=== PATIENT | female | born 1930 | race Caucasian/White ===

== ENCOUNTER 2019-03-15 09:03 | Emergency (ER) | payer MEDICARE ==
[2019-03-15 09:50] VITALS: BP 170/87
--- NOTE | 2019-03-15 10:38 | UC ---
Upper Extremity HPI - HPI Summary HPI Summary: Pt presents with c/o sudden onset of left wrist pain that began this morning when she woke. Pt denies HX of gout, recent injury or recent overuse of wrist. Pt is right handed. - History of Current Complaint Chief Complaint: UCUpperExtremity Stated Complaint: LEFT WRIST CONCERN Time Seen by Provider: 03/15/19 10:20 Hx Obtained From: Patient Hx Last Menstrual Period: n/a ?: No Onset/Duration: Sudden Onset, Still Present Severity Initially: Moderate Severity Currently: Mild Pain Intensity: 5 Location Of Pain: Is Discrete @ - left wrist Character: Dull, Aching, Stiffness Aggravating Factor(s): Movement Alleviating Factor(s): Compression - Pt wrsppe din JOHN at home and states it "made it feel slightly better". Associated Signs And Symptoms: Positive: Swelling - mild Related History: Dominant Hand Right - Risk Factors Non-Orthopedic Risk Factor: Negative DVT Risk Factors: Negative Septic Arthritis Risk Factor: Extremes of Age Compartment Syndrome Risk Factors: Pain - Allergies/Home Medications Allergies/Adverse Reactions: Allergies Allergy/AdvReac Type Severity Reaction Status Date / Time No Known Allergies Allergy Verified 03/15/19 09:35 Home Medications: Home Medications Cholecalciferol (Vitamin D3) [Vitamin D3] 1,000 unit PO DAILY 03/15/19 [History Confirmed 03/15/19] Levothyroxine TAB* [Synthroid TAB*] 75 mcg PO DAILY 03/15/19 [History Confirmed 03/15/19] Prevagen 1 tab PO DAILY 03/15/19 [History] PMH/Surg Hx/FS Hx/Imm Hx Previously Healthy: Yes Cardiovascular History: Cardiac Disease, Hypertension - Surgical History Surgical History: Yes Surgery Procedure, Year, and Place: thyroidectomy - Family History Known Family History: Positive: Cardiac Disease - Social History Occupation: Retired Lives: Alone Alcohol Use: None Substance Use Type: None Smoking Status (MU): Never Smoked Tobacco Have You Smoked in the Last Year: No - Immunization History Vaccination Up to Date: Yes Review of Systems All Other Systems Reviewed And Are Negative: Yes Constitutional: Positive: Negative Skin: Positive: Other - left wrist slightly warmer in temperature anterior aspect Eyes: Positive: Negative ENT: Positive: Negative Respiratory: Positive: Negative Cardiovascular: Positive: Negative Gastrointestinal: Positive: Negative Genitourinary: Positive: Negative Motor: Positive: Other - pain with ROM left wrist Neurovascular: Positive: Negative Musculoskeletal: Positive: Arthralgia, Edema - slight edema to left wrist, Neurological: Positive: Negative Psychological: Positive: Negative Is Patient Immunocompromised?: No Physical Exam Triage Information Reviewed: Yes Appearance: Well-Appearing Vital Signs: Initial Vital Signs Temp 97.9 F 03/15/19 09:41 Pulse 64 03/15/19 09:41 Resp 18 03/15/19 09:41 BP 170/87 03/15/19 09:41 Pulse Ox 100 03/15/19 09:41 Vital Signs Reviewed: Yes Eye Exam: Normal ENT: Positive: Hearing grossly normal Dental Exam: Normal Neck exam: Normal Respiratory: Positive: No respiratory distress Musculoskeletal Exam: Normal Musculoskeletal: Positive: Strength Intact, Edema @ - slight generalized edema left wrist skin temp of anterior aspect slightly warmer thatn posterior, possibly slight erythema to wrist but not obvious. I discussed possible gout Upper Extremity Course/Dx - Course Course Of Treatment: WE discussed the possibility of gout and S/sx of gout and pt verbalized understanding and agreed to plan of care. - Differential Dx/Diagnosis Differential Diagnosis/HQI/PQRI: Bursitis, Septic Arthritis, Sprain Provider Diagnosis: Wrist pain, left Discharge ED - Sign-Out/Discharge Documenting (check all that apply): Patient Departure All imaging exams completed and their final reports reviewed: No Studies - Discharge Plan Condition: Stable Disposition: HOME Patient Education Materials: Low Purine Diet (ED), Arthralgia (ED) Referrals: Dylan Engel MD [Primary Care Provider] - If Needed Additional Instructions: Please follow up with your PCP as needed. If your symptoms do not improve or worsen please seek medical care as soon as possible. - Billing Disposition and Condition Condition: STABLE Disposition: Home
== END 2019-03-15 10:45 | disposition home or self-care (01) ==
LOC: UCCORT 09:03
DX: I10 Essential (primary) hypertension (principal)
CPT/HCPCS: 99211; G0463

== ENCOUNTER 2021-06-08 15:19 | Inpatient (IN) ==
[2021-06-08 16:57] LABS: ABS Lymphocytes 0.2 10^3/ul (1.0-4.8); ABS Monocytes 0.3 10^3/ul (0-0.8); ABS Neutrophils 7.1 10^3/ul (1.5-7.7); Hematocrit 44 % (35-47); Hemoglobin 15.8 g/dL (12.0-16.0); Lymphocyte % 2.1 %; Mean Corpuscular HGB Conc 36 g/dL (31-36); Mean Corpuscular Hemoglobin 34 pg (27-31); Mean Corpuscular Volume 96 fL (80-97); Platelet Count 165 10^3/uL (150-450); Red Blood Count 4.64 10^6 /uL (3.70-4.87); Red Cell Distribution Width 13 % (10-15); White Blood Count 7.6 10^3/uL (3.5-10.8)
[2021-06-08 17:20] LABS: Troponin I 0.09 ng/mL (<0.03)
[2021-06-08 17:23] LABS: ALT 37 U/L (7-52); AST 100 U/L (13-39); Albumin 4.1 g/dL (3.2-5.2); Alkaline Phosphatase 53 U/L (35-149); Anion Gap 10 mmol/L (2-11); Blood Urea Nitrogen 26 mg/dL (6-24); CO2 Carbon Dioxide 34 mmol/L (22-32); Calcium 9.1 mg/dL (8.6-10.3); Chloride 78 mmol/L (101-111); Globulin 4.2 g/dL (2-4); Glucose 123 mg/dL (70-100); Potassium 3.2 mmol/L (3.5-5.0); Sodium 122 mmol/L (135-145); Total Protein 8.3 g/dL (6.4-8.9); eGFR CKD-EPI 51.7 (>60)
[2021-06-08 17:37] LABS: INR 4.5 (0.86-1.15)
[2021-06-08 17:38] LABS: Creatine Kinase 3873 U/L (10-223)
[2021-06-08 17:42] LABS: Urine Appearance Cloudy; Urine Bilirubin Negative (Negative); Urine Blood 3+ (Negative); Urine Color Yellow; Urine Glucose 2+(150 mg/dL) (Negative); Urine Ketones Negative (Negative); Urine Nitrite Negative (Negative); Urine Protein 3+(>=500 mg/dL) (Negative); Urine Specific Gravity 1.016 (1.002-1.030); Urine Urobilinogen Negative (Negative)
[2021-06-08 17:48] LABS: Urine Bacteria 1+ (Absent); Urine Granular Casts Present (Absent); Urine Red Blood Cell 1+(3-5/hpf) (Absent); Urine White Blood Cell 2+(11-20/hpf) (Absent)
[2021-06-08] MEDS ORDERED: NS 0.9% 1000 ml BAG 1,000 ML IV ONE (18:12)
[2021-06-08] MEDS ORDERED: hydrALAZINE 20 mg/ml 1 ML Vial IV IV SLOW PU PRN (20:33)
[2021-06-08 20:46] LABS: Anion Gap 9 mmol/L (2-11); Blood Urea Nitrogen 26 mg/dL (6-24); CO2 Carbon Dioxide 33 mmol/L (22-32); Calcium 8.2 mg/dL (8.6-10.3); Chloride 83 mmol/L (101-111); Glucose 113 mg/dL (70-100); Potassium 3.1 mmol/L (3.5-5.0); Sodium 125 mmol/L (135-145); eGFR CKD-EPI 53.5 (>60)
[2021-06-08 20:58] LABS: Troponin I 0.07 ng/mL (<0.03)
[2021-06-08] MEDS ORDERED: cefTRIAXone 1 gm/50 mL NS BAG 1 GM/50 ML BAG IVPB SCH (21:00)
[2021-06-08] MEDS ORDERED: Azithromycin 500 mg/250 ml NS 500 MG/250 ML BAG IVPB SCH (21:00)
[2021-06-08] MEDS ORDERED: NS 0.9% 1000 ml BAG 1,000 ML IV SCH (21:00)
[2021-06-08] MEDS ORDERED: Metoprolol Tartrate 5 mg VIAL 5 ml VIAL (1 mg/ml) IV SCH ×2 (21:00→22:22)
[2021-06-08 21:29] LABS: Rapid COVID-19 Molecular Detected (Undetected)
[2021-06-08 21:40] LABS: C Reactive Protein 106.73 mg/L (<8.01); Magnesium 1.7 mg/dL (1.9-2.7)
[2021-06-08] MEDS ORDERED: Magnesium Sulfate IV 3 GM in NS 0.9% 100 ml BAG 100 ML IVPB ONE (22:02)
[2021-06-08] MEDS ORDERED: NS 0.9% 100 ml BAG 100 ML ONE (22:05)
[2021-06-08 22:40] LABS: TSH Ultra Thyroid Stim Horm 0.88 mcIU/mL (0.34-5.60)
[2021-06-08 22:51] LABS: Folate > 20.00 ng/mL (5.90-24.80)
[2021-06-08 22:52] LABS: Vitamin B12 > 1450 pg/mL (180-914)
[2021-06-08 22:57] LABS: Osmolality Serum 264 mOsm/kg (275-295); Urine Osmo 498 mOsm/kg (150-1150)
[2021-06-08] MEDS: KCL 20 MEQ/100 ML IVPREMIX 20 MEQ/100 ML BAG IV SCH (23:21)
[2021-06-09] MEDS ORDERED: Metoprolol Tartrate 5 mg VIAL 5 ml VIAL (1 mg/ml) IV ONE ×2 (00:46→00:59)
[2021-06-09] MEDS ORDERED: hydrALAZINE 20 mg/ml 1 ML Vial IV IV SLOW PU PRN (00:46)
[2021-06-09] MEDS ORDERED: Metoprolol Tartrate 5 mg VIAL 5 ml VIAL (1 mg/ml) IV SCH ×2 (00:46→05:15)
[2021-06-09] MEDS: Azithromycin 500 mg/250 ml NS 500 MG/250 ML BAG IVPB SCH ×2 (04:08→22:36)
[2021-06-09] MEDS ORDERED: Levothyroxine 100 MCG/5 ML VIAL IV SCH (06:00)
[2021-06-09] MEDS: Levothyroxine 100 MCG/5 ML VIAL IV SCH (06:15)
[2021-06-09] MEDS ORDERED: KCL 20 MEQ/100 ML IVPREMIX 20 MEQ/100 ML BAG IV ONE (06:30)
[2021-06-09] MEDS: KCL 20 MEQ/100 ML IVPREMIX 20 MEQ/100 ML BAG IV SCH ×5 (06:33→21:34)
[2021-06-09 07:37] LABS: ABS Lymphocytes 0.2 10^3/ul (1.0-4.8); ABS Monocytes 0.3 10^3/ul (0-0.8); ABS Neutrophils 8.6 10^3/ul (1.5-7.7); Eosinophil % 0.1 %; Hematocrit 40 % (35-47); Hemoglobin 13.7 g/dL (12.0-16.0); Lymphocyte % 1.7 %; Mean Corpuscular HGB Conc 35 g/dL (31-36); Mean Corpuscular Hemoglobin 33 pg (27-31); Mean Corpuscular Volume 96 fL (80-97); Mean Platelet Volume 9.2 fL (7.4-10.4); Platelet Count 161 10^3/uL (150-450); Red Blood Count 4.14 10^6 /uL (3.70-4.87); Red Cell Distribution Width 13 % (10-15); White Blood Count 9.1 10^3/uL (3.5-10.8)
[2021-06-09 07:45] LABS: INR 4.64 (0.86-1.15)
[2021-06-09 07:49] LABS: Albumin 3.5 g/dL (3.2-5.2); Calcium 8.1 mg/dL (8.6-10.3); Globulin 3.6 g/dL (2-4); Magnesium 2.9 mg/dL (1.9-2.7); Potassium 2.8 mmol/L (3.5-5.0); Total Bilirubin 0.8 mg/dL (0.2-1.0); Total Protein 7.1 g/dL (6.4-8.9); eGFR CKD-EPI 65.9 (>60)
[2021-06-09] MEDS ORDERED: Lactated Ringers 1000 ml BAG 1,000 ML IV ONE ×2 (09:01→17:55)
[2021-06-09] MEDS ORDERED: Potassium Chloride LIQUID 20 MEQ/15 ML LIQUID PO SCH (09:15)
[2021-06-09 15:52] LABS: Calcium 7.5 mg/dL (8.6-10.3); Potassium 3.3 mmol/L (3.5-5.0); eGFR CKD-EPI 83.1 (>60)
[2021-06-09] MEDS ORDERED: Digoxin IV 0.5 MG/2 ML AMP (0.25 MG/ML) IV SLOW PU SCH (17:00)
[2021-06-09] MEDS ORDERED: Warfarin - No Order Today **NOTE FOLLOW UP ONE (17:00)
[2021-06-09] MEDS ORDERED: Warfarin per PHARMACY **NOTE FOLLOW UP SCH (17:00)
[2021-06-09] MEDS: Metoprolol Tartrate 5 mg VIAL 5 ml VIAL (1 mg/ml) IV SCH (21:50)
[2021-06-09] MEDS ORDERED: cefTRIAXone 1 gm/50 mL NS BAG 1 GM/50 ML BAG IVPB SCH (22:00)
[2021-06-10] MEDS: Metoprolol Tartrate 5 mg VIAL 5 ml VIAL (1 mg/ml) IV SCH ×2 (03:28→10:04)
[2021-06-10 05:34] LABS: Hematocrit 41 % (35-47); Hemoglobin 14.2 g/dL (12.0-16.0); Mean Platelet Volume 9.1 fL (7.4-10.4); Platelet Count 147 10^3/uL (150-450)
[2021-06-10 05:35] LABS: INR 4.44 (0.86-1.15)
[2021-06-10] MEDS: Levothyroxine 100 MCG/5 ML VIAL IV SCH (05:37)
[2021-06-10 07:38] LABS: Albumin 3.4 g/dL (3.2-5.2); Albumin/Globulin Ratio 0.9 (1-3); Calcium 7.9 mg/dL (8.6-10.3); Globulin 3.6 g/dL (2-4); Potassium 3.7 mmol/L (3.5-5.0); Total Bilirubin 0.6 mg/dL (0.2-1.0)
[2021-06-10] MEDS ORDERED: CALCIUM GLUCONATE 1GM/50ML NS 1 GM/50 ML BAG IV ONE (08:30)
[2021-06-10] MEDS ORDERED: Warfarin - No Order Today **NOTE FOLLOW UP ONE (17:00)
[2021-06-11 05:00] LABS: Hematocrit 41 % (35-47); Hemoglobin 14.2 g/dL (12.0-16.0); Mean Platelet Volume 8.5 fL (7.4-10.4); Platelet Count 146 10^3/uL (150-450)
[2021-06-11 05:07] LABS: INR 3.77 (0.86-1.15)
[2021-06-11 05:21] LABS: Albumin 3.2 g/dL (3.2-5.2); Albumin/Globulin Ratio 0.9 (1-3); Calcium 7.9 mg/dL (8.6-10.3); Globulin 3.6 g/dL (2-4); Potassium 2.9 mmol/L (3.5-5.0); Total Bilirubin 0.7 mg/dL (0.2-1.0); Total Protein 6.8 g/dL (6.4-8.9); eGFR CKD-EPI 74.1 (>60)
[2021-06-11] MEDS: Levothyroxine 100 MCG/5 ML VIAL IV SCH (06:40)
[2021-06-11] MEDS ORDERED: KCL 20 MEQ/100 ML IVPREMIX 20 MEQ/100 ML BAG IV ONE (07:00)
[2021-06-11] MEDS ORDERED: Magnesium Sulfate IV 1GM/100ML 1 GM/100 ML BAG IV ONE (07:01)
[2021-06-11] MEDS ORDERED: Calcium Gluconate 4 GM in NS 0.9% 250 ml 250 ML IVPB ONE (07:05)
[2021-06-11 07:27] LABS: Magnesium 1.6 mg/dL (1.9-2.7)
[2021-06-11] MEDS: Polyethylene Glycol 3350 17 GM PACKET PO SCH (09:43)
[2021-06-11 10:41] LABS: Phosphorus 2.1 mg/dL (2.5-5.0)
[2021-06-11] MEDS ORDERED: Magnesium Sulfate IV 3 GM in NS 0.9% 100 ml BAG 100 ML IVPB ONE (13:35)
[2021-06-11] MEDS: Potassium Chlor 20 meq TAB.ER PO SCH ×2 (14:25→17:46)
[2021-06-11] MEDS: Potassium Chloride LIQUID 20 MEQ/15 ML LIQUID PO SCH (15:33)
[2021-06-11] MEDS: Warfarin DAILY REMINDER **NOTE FOLLOW UP SCH (15:45)
[2021-06-11] MEDS ORDERED: Warfarin - No Order Today **NOTE FOLLOW UP ONE (17:00)
[2021-06-11] MEDS ORDERED: Potassium Phosphate IV 10 MMOLE in NS 0.9% 250 ml 250 ML IVPB ONE (18:30)
[2021-06-11 18:37] LABS: Calcium 8.3 mg/dL (8.6-10.3); Magnesium 3.1 mg/dL (1.9-2.7); Potassium 3.4 mmol/L (3.5-5.0)
[2021-06-11 18:42] LABS: eGFR CKD-EPI 75.3 (>60)
[2021-06-11] MEDS: Senna TAB 8.6 mg TAB PO SCH (19:55)
[2021-06-12 05:27] LABS: INR 2.91 (0.86-1.15)
[2021-06-12 05:32] LABS: Hematocrit 42 % (35-47); Hemoglobin 14.3 g/dL (12.0-16.0); Mean Platelet Volume 8.8 fL (7.4-10.4); Platelet Count 147 10^3/uL (150-450)
[2021-06-12 05:46] LABS: Calcium 8.6 mg/dL (8.6-10.3); Magnesium 2.1 mg/dL (1.9-2.7); Potassium 4.6 mmol/L (3.5-5.0)
[2021-06-12 05:51] LABS: eGFR CKD-EPI 66.8 (>60)
[2021-06-12] MEDS: Polyethylene Glycol 3350 17 GM PACKET PO SCH ×2 (09:08→09:24)
[2021-06-12 13:14] LABS: Phosphorus 3.4 mg/dL (2.5-5.0)
[2021-06-12] MEDS: Warfarin DAILY REMINDER **NOTE FOLLOW UP SCH (18:18)
[2021-06-12] MEDS ORDERED: Remdesivir 100 mg Vial 200 MG in NS 0.9% 250 ml 210 ML IV ONE (19:30)
[2021-06-12 19:40] LABS: INR 2.38 (0.86-1.15)
[2021-06-12 19:56] LABS: Albumin 2.9 g/dL (3.2-5.2); Albumin/Globulin Ratio 0.9 (1-3); Calcium 8.5 mg/dL (8.6-10.3); Globulin 3.4 g/dL (2-4); Total Bilirubin 0.7 mg/dL (0.2-1.0); Total Protein 6.3 g/dL (6.4-8.9); eGFR CKD-EPI 74.1 (>60)
[2021-06-12] MEDS ORDERED: metroNIDAZOLE IV 500 MG/100ML 500 MG/100 ML BAG IVPB SCH (22:00)
[2021-06-12] MEDS: Senna TAB 8.6 mg TAB PO SCH (23:02)
[2021-06-13] MEDS: cefTRIAXone 1 gm/50 mL NS BAG 1 GM/50 ML BAG IVPB SCH ×2 (00:38→23:00)
[2021-06-13 09:47] LABS: Albumin 3.4 g/dL (3.2-5.2); Albumin/Globulin Ratio 0.9 (1-3); Calcium 8.5 mg/dL (8.6-10.3); Magnesium 1.6 mg/dL (1.9-2.7); Phosphorus 3.7 mg/dL (2.5-5.0); Potassium 3.8 mmol/L (3.5-5.0); Total Bilirubin 0.7 mg/dL (0.2-1.0); Total Protein 7.4 g/dL (6.4-8.9); eGFR CKD-EPI 71.9 (>60)
[2021-06-13 09:52] LABS: INR 1.86 (0.86-1.15)
[2021-06-13] MEDS: metroNIDAZOLE IV 500 MG/100ML 500 MG/100 ML BAG IVPB SCH (10:10)
[2021-06-13] MEDS: Polyethylene Glycol 3350 17 GM PACKET PO SCH ×2 (10:15→10:30)
[2021-06-13] MEDS ORDERED: Magnesium Sulfate 2 gm BAG 2 GM/50 ML BAG IVPB ONE (16:51)
[2021-06-13] MEDS ORDERED: KCL 20 MEQ/100 ML IVPREMIX 20 MEQ/100 ML BAG IV ONE (16:52)
[2021-06-13] MEDS: Warfarin DAILY REMINDER **NOTE FOLLOW UP SCH (19:00)
[2021-06-13] MEDS: Senna TAB 8.6 mg TAB PO SCH (21:59)
[2021-06-14] MEDS: metroNIDAZOLE IV 500 MG/100ML 500 MG/100 ML BAG IVPB SCH ×4 (02:02→16:26)
[2021-06-14 06:11] LABS: ABS Lymphocytes 0.2 10^3/ul (1.0-4.8); ABS Monocytes 0.3 10^3/ul (0-0.8); ABS Neutrophils 6.9 10^3/ul (1.5-7.7); Hematocrit 40 % (35-47); Hemoglobin 13.6 g/dL (12.0-16.0); Lymphocyte % 2.2 %; Mean Corpuscular HGB Conc 34 g/dL (31-36); Mean Corpuscular Hemoglobin 33 pg (27-31); Mean Corpuscular Volume 97 fL (80-97); Mean Platelet Volume 8.4 fL (7.4-10.4); Platelet Count 213 10^3/uL (150-450); Red Blood Count 4.14 10^6 /uL (3.70-4.87); Red Cell Distribution Width 14 % (10-15); White Blood Count 7.4 10^3/uL (3.5-10.8)
[2021-06-14 06:18] LABS: INR 2.18 (0.86-1.15)
[2021-06-14 06:25] LABS: Calcium 8.5 mg/dL (8.6-10.3); Magnesium 2.1 mg/dL (1.9-2.7); Phosphorus 3.5 mg/dL (2.5-5.0)
[2021-06-14] MEDS ORDERED: Calcium Gluconate 2 GM in NS 0.9% 100 ml BAG 100 ML IV ONE (07:21)
[2021-06-14] MEDS: Polyethylene Glycol 3350 17 GM PACKET PO SCH (10:21)
[2021-06-14] MEDS: Warfarin DAILY REMINDER **NOTE FOLLOW UP SCH (16:24)
[2021-06-14] MEDS: Remdesivir 100 mg Vial 100 MG in NS 0.9% 250 ml 230 ML IV SCH ×2 (21:32)
[2021-06-14] MEDS: Senna TAB 8.6 mg TAB PO SCH (21:34)
[2021-06-15] MEDS: cefTRIAXone 1 gm/50 mL NS BAG 1 GM/50 ML BAG IVPB SCH (01:47)
[2021-06-15] MEDS: Remdesivir 100 mg Vial 100 MG in NS 0.9% 250 ml 230 ML IV SCH ×2 (01:48→23:54)
[2021-06-15] MEDS: metroNIDAZOLE IV 500 MG/100ML 500 MG/100 ML BAG IVPB SCH (01:49)
[2021-06-15 06:48] LABS: INR 3.11 (0.86-1.15)
[2021-06-15 06:49] LABS: Magnesium 1.6 mg/dL (1.9-2.7); Phosphorus 3.4 mg/dL (2.5-5.0); Potassium 3.2 mmol/L (3.5-5.0); eGFR CKD-EPI 79.1 (>60)
[2021-06-15] MEDS ORDERED: Calcium Gluconate 4 GM in NS 0.9% 250 ml 250 ML IVPB ONE (07:11)
[2021-06-15 08:05] LABS: Calcium (PTH Intact) 8.8 mg/dL (8.6-10.3)
[2021-06-15] MEDS: Polyethylene Glycol 3350 17 GM PACKET PO SCH ×2 (09:35→09:54)
[2021-06-15] MEDS: Warfarin DAILY REMINDER **NOTE FOLLOW UP SCH (17:23)
[2021-06-15] MEDS ORDERED: KCL 20 MEQ/100 ML IVPREMIX 20 MEQ/100 ML BAG IV ONE (17:48)
[2021-06-15] MEDS ORDERED: Magnesium Sulfate 2 gm BAG 2 GM/50 ML BAG IVPB ONE (17:49)
[2021-06-15] MEDS: Senna TAB 8.6 mg TAB PO SCH (22:44)
[2021-06-16] MEDS: Potassium Chlor 20 meq TAB.ER PO SCH ×2 (00:16→02:23)
[2021-06-16 01:13] LABS: Hematocrit 43 % (35-47); Hemoglobin 14.6 g/dL (12.0-16.0); Mean Corpuscular HGB Conc 34 g/dL (31-36); Mean Corpuscular Hemoglobin 33 pg (27-31); Mean Corpuscular Volume 97 fL (80-97); Mean Platelet Volume 8.4 fL (7.4-10.4); Platelet Count 260 10^3/uL (150-450); Red Blood Count 4.43 10^6 /uL (3.70-4.87); Red Cell Distribution Width 14 % (10-15); White Blood Count 11.7 10^3/uL (3.5-10.8)
[2021-06-16 01:15] LABS: Albumin 3.1 g/dL (3.2-5.2); Albumin/Globulin Ratio 0.8 (1-3); Calcium 9.1 mg/dL (8.6-10.3); Globulin 3.8 g/dL (2-4); Magnesium 1.7 mg/dL (1.9-2.7); Phosphorus 3.7 mg/dL (2.5-5.0); Potassium 3.7 mmol/L (3.5-5.0); Total Bilirubin 0.8 mg/dL (0.2-1.0); Total Protein 6.9 g/dL (6.4-8.9); eGFR CKD-EPI 64.9 (>60)
[2021-06-16] MEDS ORDERED: Amoxicillin/Clavul 875/125 TAB (Augmentin 875 tab) PO SCH ×2 (01:19→21:00)
[2021-06-16 01:27] LABS: PCO2 Arterial 39 mmHg (35-45); PO2 Arterial 65 mmHg (80-100)
[2021-06-16 01:33] LABS: ABS Basophils 0.1 10^3/ul (0-0.2); ABS Lymphocytes 0.2 10^3/ul (1.0-4.8); ABS Monocytes 0.5 10^3/ul (0-0.8); ABS Neutrophils 10.9 10^3/ul (1.5-7.7); Lymphocyte % 1.6 %
[2021-06-16 01:46] LABS: Troponin I 0.04 ng/mL (<0.03)
[2021-06-16] MEDS ORDERED: Morphine 2 MG/ML SYRINGE IV ONE (02:44)
[2021-06-16] MEDS ORDERED: Morphine ORAL CONCENTRATE 5 MG/0.25 ML ORAL.SYRIN SL ONE (05:51)
[2021-06-16] MEDS: Albuterol HFA INHALER 8 gm MDI INH SCH ×5 (06:11→19:06)
[2021-06-16] MEDS: Polyethylene Glycol 3350 17 GM PACKET PO SCH (09:31)
[2021-06-16 10:31] LABS: Rapid COVID-19 Molecular Detected (Undetected)
[2021-06-16] MEDS ORDERED: Atropine 1% (ORAL/SL) 15 ML BTL SL PRN (13:54)
[2021-06-16] MEDS ORDERED: Morphine 2 MG/ML SYRINGE IV PRN (13:54)
[2021-06-16] MEDS ORDERED: Ondansetron ODT 4 mg TAB 4 MG TAB SL PRN (13:54)
[2021-06-16] MEDS: Morphine ORAL CONCENTRATE 5 MG/0.25 ML ORAL.SYRIN SL PRN (16:07)
[2021-06-16] MEDS: Remdesivir 100 mg Vial 100 MG in NS 0.9% 250 ml 230 ML IV SCH (20:27)
[2021-06-16] MEDS: Senna TAB 8.6 mg TAB PO SCH (20:27)
[2021-06-17] MEDS: Albuterol HFA INHALER 8 gm MDI INH SCH (07:22)
[2021-06-17] MEDS: Polyethylene Glycol 3350 17 GM PACKET PO SCH (10:23)
[2021-06-17] MEDS: Morphine ORAL CONCENTRATE 5 MG/0.25 ML ORAL.SYRIN SL PRN ×2 (10:23→18:23)
[2021-06-17] MEDS: Amoxicillin/Clavul ORALSYR 80 MG/ML (400 MG/5 ML) PO SCH ×2 (10:24→22:23)
[2021-06-17] MEDS ORDERED: Albuterol HFA INHALER 8 gm MDI INH PRN (10:56)
[2021-06-17] MEDS: Senna TAB 8.6 mg TAB PO SCH (21:15)
[2021-06-18] MEDS: Polyethylene Glycol 3350 17 GM PACKET PO SCH (09:48)
[2021-06-18] MEDS: Amoxicillin/Clavul ORALSYR 80 MG/ML (400 MG/5 ML) PO SCH (09:49)
[2021-06-18] MEDS: Morphine ORAL CONCENTRATE 5 MG/0.25 ML ORAL.SYRIN SL PRN ×2 (17:50→22:11)
[2021-06-18 23:21] VITALS: BP 133/87
[2021-06-19] MEDS: Morphine ORAL CONCENTRATE 5 MG/0.25 ML ORAL.SYRIN SL PRN ×3 (01:55→09:00)
[2021-06-19 16:41] LABS: Rapid COVID-19 Molecular Detected (Undetected)
[2021-06-19] MEDS ORDERED: Ondansetron ODT 4 mg TAB 4 MG TAB SL PRN (18:22)
[2021-06-19] MEDS: Morphine ORAL CONCENTRATE 5 MG/0.25 ML ORAL.SYRIN SL SCH (19:29)
[2021-06-20] MEDS: Morphine ORAL CONCENTRATE 5 MG/0.25 ML ORAL.SYRIN SL SCH ×6 (00:32→19:33)
[2021-06-22] MEDS ORDERED: Scopolamine PATCH Remove NOTE PATCH OFF SCH (19:00)
== END 2021-06-20 22:17 | disposition expired | DRG 177 ==
LOC: ED 15:19 → SUATTDRO 20:13 → EDHOLD 20:13 → MED 23:04
PROVIDERS: ADMIT Student in an Organized Health Care Education/Training Program; ATTEND Internal Medicine